=== PATIENT | female | born 2005 | race Caucasian/White ===

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

== ENCOUNTER → 2023-07-09 | Outpatient (CLI) | payer BC ==
--- NOTE | 2023-07-10 09:02 | CT ---
EXAMINATION TYPE: CT facial bones w con DATE OF EXAM: 07/09/2023 COMPARISON: None HISTORY: Patient states that there is a cyst inside her mouth x [address] DLP: 603 mGycm Automated exposure control for dose reduction was used. CONTRAST: CT scan of the facial bones is performed with IV Contrast, patient injected with 100 cc mL of Isovue 300. TECHNIQUE: CT scan of the sinuses is performed without contrast, axial images are obtained, coronal r eformatted images are also reviewed. FINDINGS: The paranasal sinuses including the frontal, ethmoid, sphenoid, and maxillary sinuses bila terally are well-aerated mild ethmoidal chronic sinusitis. Nasal septal deviation noted.. The ostiom eatal complex is patent bilaterally on the coronal images. There is asymmetry at the level of the oropharynx anteriorly on the right and base of the tongue rachel mmend direct visualization. No enhancing mass. Visualized portion of mastoid air cells show no abnormal opacification. The globes are intact bilate rally. No pathologic sized lymph nodes. Shotty lymph nodes are seen measuring less than a centimeter in short axis. Thyroid normal. IMPRESSION: 1. Mild ethmoidal chronic sinusitis. 2. Slight asymmetry at the level of the oropharynx on the right anteriorly and base of the tongue rec ommend ENT consultation.
== END | disposition home or self-care (01) ==
LOC: RADCTMAIN 16:04
PROVIDERS: ATTEND Orthopaedic Surgery Sports Medicine
DX: J32.2 Chronic ethmoidal sinusitis (principal); K13.79 Other lesions of oral mucosa
CPT/HCPCS: 70487; Q9967